=== PATIENT | female | born 1995 | race Caucasian/White ===

== ENCOUNTER 2016-12-18 12:49 | Emergency (ER) | payer MEDICAID ==
[~2016-12-18] VITALS: Ht 165.1 cm; Wt 90.0 kg
[2016-12-18] MEDS ORDERED: BACITRACIN ZINC OINT UDPKT TOP ONE (14:00)
[2016-12-18 15:39] LABS: HCG SCREEN NEGATIVE
[2016-12-18 16:42] VITALS: BP 125/90
[2016-12-18] MEDS ORDERED: HYDROCODONE/ACETAMINOPHEN 5/325MG TABLET PO ONE (16:45)
== END 2016-12-18 17:31 | disposition home or self-care (01) ==
LOC: ER 13:01
DX: S00.12XA Contusion of left eyelid and periocular area, initial encounter (principal); S00.531A Contusion of lip, initial encounter; Y08.89XA Assault by other specified means, initial encounter; Y93.89 Activity, other specified; Y92.512 Supermarket, store or market as the place of occurrence of the external cause
CPT/HCPCS: 12011; 70486; 84703; 93005; 99285